=== PATIENT | female | born 1950 | race Two or more races ===

== ENCOUNTER 2022-11-14 08:56 | Day surgery (SDC) | payer MEDICARE, MEDICAID ==
[~2022-11-14] VITALS: Ht 157.5 cm; Wt 76.9 kg
[~2022-11-14 08:56] MED LIST: AMLO5TAB PO
[2022-11-14 09:30] VITALS: BP 139/64
[2022-11-14] MEDS ORDERED: FURO80TA3 PO (09:49)
[2022-11-14] MEDS ORDERED: DILT240C51 PO (09:49)
[2022-11-14] MEDS ORDERED: MELA10TA2 PO (09:49)
[2022-11-14] MEDS ORDERED: PRAM0.122 PO (09:49)
[2022-11-14] MEDS ORDERED: ASPI81TA52 PO (09:49)
[2022-11-14] MEDS ORDERED: METO-395 PO (09:49)
[2022-11-14] MEDS ORDERED: DOCU100C40 PO (09:49)
[2022-11-14] MEDS ORDERED: CYAN500T46 PO (09:49)
[2022-11-14] MEDS ORDERED: ATI1T PO (09:49)
[2022-11-14] MEDS ORDERED: LOSA50TA3 PO (09:49)
[2022-11-14] MEDS ORDERED: normal saline 1000ml 1,000 ML IV SCH (10:35)
[2022-11-14 10:38] LABS: BASOPHILS % (AUTO) 0.7 % (0-1); EOSINOPHILS # (AUTO) 0.4 X10'3 (0-0.9); EOSINOPHILS % (AUTO) 9.1 % (0-6); HEMATOCRIT 37.3 % (35.0-45.0); HEMOGLOBIN 12.4 g/dl (12.0-16.0); LYMPHOCYTES # (AUTO) 0.9 X10'3 (1.1-4.8); LYMPHOCYTES % (AUTO) 20.3 % (21-51); MEAN CORPUSCULAR HEMOGLOBIN 30.7 PG (27.0-31.0); MEAN CORPUSCULAR HGB CONC 33.1 g/dL (33.0-36.5); MEAN CORPUSCULAR VOLUME 92.5 FL (78-98); MEAN PLATELET VOLUME 7.6 FL (7.4-10.4); MONOCYTES # (AUTO) 0.5 X10'3 (0-0.9); MONOCYTES % (AUTO) 10.2 % (2-12); NEUTROPHILS # (AUTO) 2.7 X10'3 (1.8-7.7); NEUTROPHILS % (AUTO) 59.7 % (42-75); PLATELET COUNT 184 X10'3 (140-440); RED BLOOD COUNT 4.03 X10'6 (4.20-5.60); RED CELL DISTRIBUTION WIDTH 17.4 % (11.5-14.5); WHITE BLOOD COUNT 4.5 X10'3 (4.5-11.0)
[2022-11-14 10:49] LABS: ALBUMIN 3.4 G/DL (3.4-5.0); ANION GAP 11 (8-16); BLOOD UREA NITROGEN 42 MG/DL (7-18); BUN/CREATININE RATIO 7.2 (6.6-38.0); CALCIUM 8.1 MG/DL (8.5-10.1); CHLORIDE 96 MMOL/L (99-107); CREATININE 5.81 MG/DL (0.40-0.90); GLUCOSE 89 MG/DL (70-104); POTASSIUM 4.3 MMOL/L (3.5-5.1); SODIUM 139 MMOL/L (135-145); TOTAL CARBON DIOXIDE 32.5 MMOL/L (24-32); eGFR 7 ML/MIN
[2022-11-14] MEDS ORDERED: midazolam 1 mg/ML 2ml injection ONE (10:58)
[2022-11-14] MEDS ORDERED: FENTANYL CITRATE/PF 50 MCG/1 ML VIAL ONE ×2 (10:58→11:23)
[2022-11-14] MEDS ORDERED: heparin 1,000 UNITS/NS 500ml 500 ML ONE (11:15)
[2022-11-14 12:15] VITALS: BP 143/61
[2022-11-14 12:30] VITALS: BP 143/71
[2022-11-14 12:45] VITALS: BP 145/66
[2022-11-14 13:00] VITALS: BP 138/52
[2022-11-14 13:30] VITALS: BP 128/54
== END 2022-11-14 13:30 | disposition home or self-care (01) ==
LOC: SSTAY O 08:56
PROVIDERS: ATTEND Radiology Vascular & Interventional Radiology
DX: T82.858A Stenosis of other vascular prosthetic devices, implants and grafts, initial encounter (principal); I12.0 Hypertensive chronic kidney disease with stage 5 chronic kidney disease or end stage renal disease; N18.6 End stage renal disease; F41.9 Anxiety disorder, unspecified; M10.9 Gout, unspecified; Z98.890 Other specified postprocedural states; Z79.82 Long term (current) use of aspirin; Z79.899 Other long term (current) drug therapy; Y83.2 Surgical operation with anastomosis, bypass or graft as the cause of abnormal reaction of the patient, or of later complication, without mention of misadventure at the time of the procedure; Y92.89 Other specified places as the place of occurrence of the external cause
CPT/HCPCS: 36415; 36902; 80048; 85025; 85610; 99152; 99153; C1769; C1894; J1644; J2250; J3010; J7030; C2623

== ENCOUNTER 2023-07-29 08:10 | Day surgery (SDC) | payer MEDICARE, MEDICAID ==
[~2023-07-29] VITALS: Ht 154.9 cm; Wt 80.4 kg
[~2023-07-29 08:10] MED LIST changes: +ASPI81TA52 PO; +ATI1T PO; +CYAN500T46 PO; +DILT240C51 PO; +DOCU100C40 PO; +FURO80TA3 PO; +LOSA-416 PO; +MELA10TA2 PO; +METO-395 PO; +PRAM0.122 PO
[2023-07-29] MEDS ORDERED: normal saline 1000ml 1,000 ML IV PRN (08:55)
[2023-07-29 09:00] VITALS: BP 111/50; PULSE 62; RESP 16; TEMP 98.2; O2SAT 95
[2023-07-29 09:14] LABS: BASOPHILS % (AUTO) 0.8 % (0-1); EOSINOPHILS # (AUTO) 0.5 X10'3 (0-0.9); EOSINOPHILS % (AUTO) 11.8 % (0-6); HEMATOCRIT 35.1 % (35.0-45.0); HEMOGLOBIN 11.5 g/dl (12.0-16.0); LYMPHOCYTES # (AUTO) 0.8 X10'3 (1.1-4.8); MEAN CORPUSCULAR HEMOGLOBIN 30.3 PG (27.0-31.0); MEAN CORPUSCULAR HGB CONC 32.8 g/dL (33.0-36.5); MEAN CORPUSCULAR VOLUME 92.3 FL (78-98); MEAN PLATELET VOLUME 7.6 FL (7.4-10.4); MONOCYTES # (AUTO) 0.5 X10'3 (0-0.9); MONOCYTES % (AUTO) 11.2 % (2-12); NEUTROPHILS # (AUTO) 2.7 X10'3 (1.8-7.7); NEUTROPHILS % (AUTO) 59.2 % (42-75); PLATELET COUNT 165 X10'3 (140-440); RED BLOOD COUNT 3.81 X10'6 (4.20-5.60); RED CELL DISTRIBUTION WIDTH 17.1 % (11.5-14.5); WHITE BLOOD COUNT 4.5 X10'3 (4.5-11.0)
[2023-07-29] MEDS ORDERED: midazolam 1 mg/ML 2ml injection ONE (09:14)
[2023-07-29] MEDS ORDERED: heparin 1,000 UNITS/NS 500ml 500 ML ONE (09:15)
[2023-07-29] MEDS ORDERED: fentaNYL/PF 50MCG/1 ML 2ML syringe ONE (09:15)
[2023-07-29] MEDS ORDERED: iohexol 300mg/ml 100ml inj. ONE (09:15)
[2023-07-29] MEDS ORDERED: LIDOcaine 1% 30ml preserv. free vial ONE (09:15)
[2023-07-29 09:24] LABS: PROTHROMBIN TIME 10.5 SECONDS (9.0-12.0)
[2023-07-29 09:28] LABS: ALBUMIN 3.1 G/DL (3.4-5.0); ANION GAP 8 (8-16); BLOOD UREA NITROGEN 44 MG/DL (7-18); BUN/CREATININE RATIO 8.3 (10.0-20.0); CALCIUM 8.6 MG/DL (8.5-10.1); CHLORIDE 97 MMOL/L (99-107); CREATININE 5.29 MG/DL (0.40-0.90); GLUCOSE 100 MG/DL (70-104); POTASSIUM 4.4 MMOL/L (3.5-5.1); SODIUM 137 MMOL/L (135-145); TOTAL CARBON DIOXIDE 31.8 MMOL/L (24-32); eCRCL 7 ML/MIN; eGFR 8 ML/MIN
[2023-07-29] MEDS ORDERED: POLY17PO59 PO (09:37)
[2023-07-29] MEDS ORDERED: ALLO100T25 PO (09:37)
[2023-07-29] MEDS ORDERED: LORA-268 PO (09:37)
[2023-07-29] MEDS ORDERED: LACT10SO88 PO (09:37)
[2023-07-29] MEDS ORDERED: PATI8.4P PO (09:37)
[2023-07-29] MEDS ORDERED: HYDR-4069 PO (09:37)
[2023-07-29] MEDS ORDERED: heparin 1,000unit/ml 10ml vial 10 ML ONE (11:30)
[2023-07-29 14:10] VITALS: BP 132/55; PULSE 58; RESP 16; O2SAT 96
[2023-07-29 14:17] VITALS: BP 152/62; PULSE 59; RESP 16; O2SAT 96
[2023-07-29 14:44] VITALS: BP 139/57; PULSE 61; RESP 16; O2SAT 95
[2023-07-29 15:00] VITALS: BP 114/71; PULSE 61; RESP 16; O2SAT 96
[2023-07-29 15:12] VITALS: BP 106/50; PULSE 62; RESP 16; O2SAT 93
== END 2023-07-29 15:25 | disposition home or self-care (01) ==
LOC: SSTAY O 08:10
PROVIDERS: ATTEND Radiology Diagnostic Radiology
DX: T82.858A Stenosis of other vascular prosthetic devices, implants and grafts, initial encounter (principal); I12.0 Hypertensive chronic kidney disease with stage 5 chronic kidney disease or end stage renal disease; N18.6 End stage renal disease; M10.9 Gout, unspecified; F41.9 Anxiety disorder, unspecified; Z99.2 Dependence on renal dialysis; Z79.899 Other long term (current) drug therapy; Z79.82 Long term (current) use of aspirin; Y83.2 Surgical operation with anastomosis, bypass or graft as the cause of abnormal reaction of the patient, or of later complication, without mention of misadventure at the time of the procedure; Y92.89 Other specified places as the place of occurrence of the external cause
CPT/HCPCS: 36415; 36902; 80048; 85025; 85610; 99152; 99153; C1769; J1644; J2250; J3010; J3490; J7030; Q9967; A4620; A6449; C1894; C2623